=== PATIENT | female | born 1940 | race Caucasian/White ===

== ENCOUNTER 2018-01-13 07:39 | Day surgery (SDC) | payer MEDICARE ==
[2018-01-13] MEDS ORDERED: Lactated Ringer's 500 ML IV ONE (08:35)
[2018-01-13] MEDS ORDERED: Propofol 10 mg/ml Inj (20 ML) ONE (09:39)
[2018-01-13 10:12] VITALS: TEMP 97
[2018-01-13 10:20] VITALS: BP 133/58; PULSE 59; RESP 21; O2SAT 100
== END 2018-01-13 10:50 | disposition home or self-care (01) ==
LOC: H.ENDO 07:39 → EDSTATUS 10:00 → H.ENDO 10:50
PROVIDERS: ATTEND Internal Medicine Gastroenterology
DX: Z85.038 Personal history of other malignant neoplasm of large intestine (principal); K64.8 Other hemorrhoids; D12.5 Benign neoplasm of sigmoid colon; D12.0 Benign neoplasm of cecum
CPT/HCPCS: 45380; 88305; J2001; J2704; J7120

== ENCOUNTER 2018-01-27 08:28 | Day surgery (SDC) | payer MEDICARE ==
[2018-01-27] MEDS ORDERED: Lactated Ringer's 500 ML IV ONE (08:55)
[2018-01-27] MEDS ORDERED: Etomidate 20 mg/10ml Inj IV ONE (09:13)
[2018-01-27] MEDS ORDERED: Propofol 10 mg/ml Inj (20 ML) ONE (09:13)
[2018-01-27 09:54] VITALS: BP 140/71; PULSE 51; RESP 21; TEMP 97; O2SAT 100
== END 2018-01-27 11:51 | disposition home or self-care (01) ==
LOC: H.ENDO 08:28
PROVIDERS: ATTEND Internal Medicine Gastroenterology
DX: K21.9 Gastro-esophageal reflux disease without esophagitis (principal); K29.50 Unspecified chronic gastritis without bleeding; K44.9 Diaphragmatic hernia without obstruction or gangrene; K22.8 Other specified diseases of esophagus; K31.89 Other diseases of stomach and duodenum; K59.00 Constipation, unspecified; K64.9 Unspecified hemorrhoids; M81.0 Age-related osteoporosis without current pathological fracture; F41.9 Anxiety disorder, unspecified; G20 Parkinson's disease; G47.00 Insomnia, unspecified; E78.5 Hyperlipidemia, unspecified; I10 Essential (primary) hypertension; Z79.82 Long term (current) use of aspirin; Z90.49 Acquired absence of other specified parts of digestive tract; Z80.0 Family history of malignant neoplasm of digestive organs
CPT/HCPCS: 43239; 88305; J2001; J2704; J7120